=== PATIENT | female | born 1980 | race Caucasian/White ===

== ENCOUNTER 2016-12-16 10:13 | Emergency (ER) | payer MEDICAID ==
[2016-12-16 10:28] VITALS: BP 144/103
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
[2016-12-16] MEDS ORDERED: LORazepam 2 MG/ML MDV IVPUSH ONE (11:17)
[2016-12-16] MEDS ORDERED: Sodium Chloride 0.9% 10 ML Syringe FLUSH ONE (11:22)
[2016-12-16] MEDS ORDERED: Iopamidol 612 MG/ML 150 ML Bottle IVPUSH ONE (11:22)
[2016-12-16] MEDS: Sodium Chloride 0.9% 10 ML Syringe FLUSH PRN ×2 (11:34→12:41)
--- NOTE | 2016-12-16 13:45 | CT ---
CT abdomen and pelvis Technique: Multiple axial sections were obtained from above the dome of the diaphragm inferiorly through the pubic symphysis. Intravenous contrast was utilized. No oral contrast has been given. Comparison: No previous study. Findings: Visualized lung bases shows nothing acute. Bone window settings shows no lower rib fracture. Liver shows no focal parenchymal abnormality. Gallbladder shows no calcified gallstones. Spleen is within normal limits. Adrenal glands show no nodule. Kidneys show symmetric contrast enhancement. Small lower pole cyst is noted within the right kidney measuring approximately 6 mm. Kidneys are otherwise unremarkable. Pancreas is within normal limits. Aorta shows no aneurysmal dilatation. No retroperitoneal adenopathy or mesenteric abnormalities are seen. No pelvic mass or adenopathy is seen. No free fluid or inflammatory change is seen. Appendix is seen and appears normal. Delayed images shows contrast within the bladder. Impression: 1. Nothing acute is identified on CT study of the abdomen and pelvis. Incidental findings as noted above. Diagnostic code #2
[2016-12-16] MEDS ORDERED: Acetaminophen 325 MG Tab PO ONE (13:46)
--- NOTE | 2016-12-17 08:25 | CR ---
Left elbow: Four views of the left elbow were obtained. Comparison: No previous study. Joint spaces are maintained. No joint effusion is seen. No fracture or other abnormality is seen. Impression: 1. No abnormality is seen on four-view left elbow study. Diagnostic code #1
--- NOTE | 2016-12-17 08:50 | CR ---
Cervical spine: AP, lateral, swimmer's and odontoid views of the cervical spine were obtained. Comparison: No previous study. Vertebral body heights and disc spaces are maintained. Prevertebral soft tissues are normal. No fracture, dislocation or other bony abnormality is seen. Impression: 1. No abnormality is identified on four-view cervical spine study. Diagnostic code #1
== END 2016-12-16 14:34 | disposition home or self-care (01) ==
LOC: JD.ED 10:13
DX: S40.022A Contusion of left upper arm, initial encounter (principal); S40.021A Contusion of right upper arm, initial encounter; S40.812A Abrasion of left upper arm, initial encounter; S40.811A Abrasion of right upper arm, initial encounter; Z79.899 Other long term (current) drug therapy; Y04.0XXA Assault by unarmed brawl or fight, initial encounter
CPT/HCPCS: 36415; 72040; 73080; 74177; 80053; 81001; 84703; 85025; 87086; 96374; 99285; A9270; J2060; J7050; Q9967; 99284

== ENCOUNTER 2017-12-23 23:40 | Emergency (ER) | payer MEDICAID ==
[2017-12-23 23:45] VITALS: BP 128/87
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
--- NOTE | 2017-12-26 11:28 | CR ---
Right knee: Four views of the right knee were obtained. Comparison: Prior right knee exam of 04/04/17. Joint spaces are not seen well in profile but probable medial joint space narrowing is present. Lateral joint space is likely preserved. No joint effusion is seen. No acute fracture or other bony abnormality is identified. Impression: 1. Mild medial joint space narrowing. 2. Right knee exam is otherwise unremarkable. Diagnostic code #2
== END 2017-12-24 01:20 | disposition home or self-care (01) ==
LOC: JD.ED 23:40
DX: S83.91XA Sprain of unspecified site of right knee, initial encounter (principal); W19.XXXA Unspecified fall, initial encounter
CPT/HCPCS: 73564-26-RT; 73564-RT; 99283

== ENCOUNTER → 2021-03-05 | Day surgery (SDC) | payer MEDICAID ==
[~2021-03-05] MED LIST: Acetaminophen/HYDROcodone 325-5 MG Tab PO PRN; Bupivacaine 0.25% 10 ML SDV ONE; EPINEPHrine 1 MG/ML 30 ML MDV IRR SCH; Ketorolac 30 MG/ML SDV ONE; Lactated Ringers 1,000 ML IV SCH; Lidocaine 1% 4 ML ONE; Lidocaine 1%/Sod Bicarbonate in NS 8.4% 1 ML Syringe IDERM PRN; Midazolam 1 MG/ML 2 ML SDV ONE; Ondansetron 4 MG/2 ML SDV ONE; Propofol 200 MG/20 ML SDV ONE; Sodium Chloride 0.9% 10 ML Syringe FLUSH PRN; Triamcinolone Acetonide 40 MG/ML 1 ML SDV ONE; ceFAZolin 1 GM Vial ONE; fentaNYL 100 MCG/2 ML SDV IVPUSH PRN; fentaNYL 250 MCG/5 ML SDV ONE
--- NOTE | 2021-03-05 08:55 | PCM.PREANE ---
Preanesthetic Assessment - Procedure Proposed Procedure: right knee video arthrosocopy with chonddroplasty and steroid injection - Anesthesia/Transfusion/Family Hx Anesthesia History: Prior Anesthesia Without Reaction Other Type of Anesthesia Reaction Comment: no anesthesia reaction Family History of Anesthesia Reaction: No Transfusion History: No Prior Transfusion(s) Type of Transfusion Reactions: Reports: Unknown - Review of Systems General: No Symptoms Pulmonary: No Symptoms Cardiovascular: No Symptoms Gastrointestinal: No Symptoms Neurological: No Symptoms Other: Reports: Depression, Anxiety - Physical Assessment NPO Status Date: 03/04/21 NPO Status Time: 20:00 Vital Signs: 97% 147/98 80 18 Height: 5 ft 8 in Weight: 84 kg ASA Class: 2 Mental Status: Other (cognitive impairment- cnsent given by guardian over the phone) Airway Class: Mallampati = 2 Dentition: Reports: Broken Tooth/Teeth, Missing Tooth/Teeth, Caries Thyro-Mental Finger Breadths: 3 Mouth Opening Finger Breadths: 3 ROM/Head Extension: Full Lungs: Clear to Auscultation, Normal Respiratory Effort Cardiovascular: Regular Rate, Regular Rhythm - Lab Values: Laboratory Last Values Urine HCG, Qual Negative (NEGATIVE) 03/05/21 08:30 - Allergies Allergies/Adverse Reactions: Allergies Allergy/AdvReac Type Severity Reaction Status Date / Time ibuprofen Allergy NAUSEA/GI Verified 03/04/21 15:22 UPSET - Blood Blood Available: No - Acknowledgements Anesthesia Type Planned: General Anesthesia Pt an Appropriate Candidate for the Planned Anesthesia: Yes Alternatives and Risks of Anesthesia Discussed w Pt/Guardian: Yes Pt/Guardian Understands and Agrees with Anesthesia Plan: Yes PreAnesthesia Questionnaire HEENT History: Reports: Impaired Vision, Other (See Below) (cognitive impairment- has a guardian to sign for her) Cardiovascular History: Reports: None Respiratory History: Reports: Other (See Below) Other Respiratory History: COUGH, URI'S Musculoskeletal History: Reports: Other (See Below) Other Musculoskeletal History: CHRONIC PAIN, ANKLE ENTHESOPATHY Psychiatric History: Reports: Anxiety, Depression, Developmental Delay Endocrine/Metabolic History: Reports: Other (See Below) Other Endocrine/Metabolic History: GOITER Oncologic (Cancer) History: Reports: None - Past Surgical History HEENT Surgical History: Reports: Eye Surgery, Other (See Below) (lip) Musculoskeletal Surgical History: Reports: Arthroscopic Knee, Other (See Below) (left ankle bone spur) - SUBSTANCE USE Tobacco Use Status *Q: Never Tobacco User Tobacco Use Within Last Twelve Months: No Second Hand Smoke Exposure: No Days Per Week of Alcohol Use: 0 Recreational Drug Use History: No - HOME MEDS Home Medications: Home Meds Acetaminophen 1,000 mg PO Q6HR PRN 01/19/16 [History] Sertraline [Zoloft] 75 mg PO DAILY 01/19/16 [History] Aspirin [Aspirin EC] 325 mg PO BID #60 tab 03/05/21 [Rx] Hydrocodone/Acetaminophen [HYDROcodone-Acetaminophen 5-325 MG] 1 each PO Q6H PRN #8 tablet 03/05/21 [Rx] - CURRENT (IN HOUSE) MEDS Current Meds: Current Medications Lactated Ringer's (Ringers, Lactated) 1,000 mls @ 125 mls/hr IV ASDIRECTED SEBASTIEN Stop: 03/05/21 23:00 Lidocaine/Sodium Bicarbonate (Lidocaine 1%/Sod Bicarbonate In Ns 8.4% 1 Ml Syringe) 0.25 ml IDERM ONETIME PRN PRN Reason: Prior to IV Start Stop: 03/05/21 18:00 Sodium Chloride (Sodium Chloride 0.9% 10 Ml Syringe) 10 ml FLUSH ASDIRECTED PRN PRN Reason: Keep Vein Open Stop: 03/05/21 18:00
--- NOTE | 2021-03-05 11:00 | PCM.POSTAN ---
POST ANESTHESIA ASSESSMENT - MENTAL STATUS Mental Status: Alert, Oriented - VITAL SIGNS Vital Signs: Last Vital Signs Temp 36.7 C 03/05/21 08:50 Pulse 80 03/05/21 08:50 Resp 18 03/05/21 08:50 BP 147/98 H 03/05/21 08:50 Pulse Ox 97 03/05/21 08:50 - RESPIRATORY Respiratory Status: Respiratory Rate WNL, Airway Patent, O2 Saturation Stable, Supplemental Oxygen - CARDIOVASCULAR CV Status: Pulse Rate WNL, Blood Pressure Stable - GASTROINTESTINAL GI Status: No Symptoms - PAIN Pain Score: 0 - POST OP HYDRATION Hydration Status: Adequate & Stable - OBSERVATIONS Free Text/Narrative:: no anesthesia complications noted
--- NOTE | 2021-03-05 13:05 | PCM48HPAN ---
Post Anesthesia Note - EVALUATION WITHIN 48HRS OF ANESTHETIC Vital Signs in Normal Range: Yes Patient Participated in Evaluation: Yes Respiratory Function Stable: Yes Airway Patent: Yes Cardiovascular Function Stable: Yes Hydration Status Stable: Yes Pain Control Satisfactory: Yes Nausea and Vomiting Control Satisfactory: Yes Mental Status Recovered: Yes Vital Signs: Last Vital Signs Temp 36.6 C 03/05/21 11:15 Pulse 88 03/05/21 11:15 Resp 15 03/05/21 11:15 BP 134/87 03/05/21 11:15 Pulse Ox 97 03/05/21 11:15 - COMMENTS/OBSERVATIONS Free Text/Narrative:: no anesthesia complications noted
[2021-03-05 16:06] VITALS: BP 131/84; PULSE 85
--- NOTE | 2021-03-16 12:26 | PCM.OPNOTE ---
- General Post-Op/Procedure Note Date of Surgery/Procedure: 03/05/21 Operative Procedure(s): right knee video arthroscopy with chondroplasty of medial femoral condyle and patella with knee corticosteroid injection Pre Op Diagnosis: right knee chondromalacia Post-Op Diagnosis: Same Anesthesia Technique: General LMA, Local Primary Surgeon: Leno Ang Anesthesia Provider: Jose Orozco Singing Telegram Performer: Susan Yoder EBL in mLs: 5 Complications: None Condition: Good
--- NOTE | 2021-03-18 07:16 | OR ---
DATE OF OPERATION: 03/05/2021 SURGEON: Leno Ang MD OPERATION PERFORMED: Right knee video arthroscopy with chondroplasty of medial femoral condyle and patella with knee corticosteroid injection. PREOPERATIVE DIAGNOSIS: Right knee chondromalacia. POSTOPERATIVE DIAGNOSIS: Right knee chondromalacia. ANESTHESIA: General LMA with local. ANESTHESIA PROVIDER: Jose Orozco CRNA SCRAP BURNER: Susan Yoder PA-C ESTIMATED BLOOD LOSS: Less than 5 mL. COMPLICATIONS: None. CONDITION: Stable. DESCRIPTION OF PROCEDURE: The patient was identified in the preoperative holding area, proper site was marked, identified by the surgeon. The patient was taken back to the operative theater, where after adequate anesthesia, the patient's left lower extremity was placed in a well leg ryan. Right lower extremity had a nonsterile tourniquet applied and was placed in a C-clamp ryan. Foot of the bed was lowered. The right lower extremity was then sterilely prepped and draped in usual sterile fashion. OR time-out was performed. The patient received 2 g of IV Ancef. At this time, right lower extremity was exsanguinated and tourniquet was insufflated to 250 mmHg. Standard anterior lateral portal incision was made. Scope trocar was introduced. The patient was noted to have grade 2 chondromalacia with one small area of grade 3 chondromalacia of the patella as well as the trochlea. Attention was turned to the medial compartment. Anteromedial portal was created with the use of a spinal needle. The patient was noted to have grade 2 chondromalacia of the medial compartment, which was a small loose flap. At this time, a chondroplasty was performed of the medial femoral condyle. The patient was noted to have no meniscal tear. ACL was intact in the notch. Lateral compartment showed grade 2 chondromalacia changes, but no loose cartilaginous flaps. Chondroplasty was then performed to the patella. There were no other loose bodies. Excess saline was drained from the knee after making sure the spinal needle was placed intra-articularly. Excess saline was drained and then 2 mL of 40 mg Kenalog and 4 mL of 0.25% Marcaine were injected into the knee. 3-0 nylon was used for closure of the portal incisions. 0.25% Marcaine was used around the portal incisions. The patient had a sterile soft dressing applied and was sent to the PACU in stable condition. MMODAL /[id number]
== END | disposition home or self-care (01) ==
LOC: JD.SDS 08:40
PROVIDERS: ATTEND Orthopaedic Surgery
DX: M94.261 Chondromalacia, right knee (principal); E66.9 Obesity, unspecified; Z79.899 Other long term (current) drug therapy; Z88.8 Allergy status to other drugs, medicaments and biological substances
CPT/HCPCS: 20610; 29877; 81025; A9270; J0171; J0690; J1885; J2250; J2405; J2704; J3010; J3301; J3490; J7120; 01400

== ENCOUNTER 2024-02-06 12:10 | Emergency (ER) | payer MEDICAID ==
[2024-02-06 12:23] VITALS: BP 150/81; PULSE 88
[2024-02-06] MEDS: Ketorolac 0.5% Ophth Soln 5 ML Bottle EYELF ONE (13:18)
[2024-02-06] MEDS: Ciprofloxacin 0.3% Ophth Soln 5 ML Bottle EYELF ONE (13:19)
== END 2024-02-06 13:55 | disposition home or self-care (01) ==
LOC: JD.ED 12:10
DX: T15.02XA Foreign body in cornea, left eye, initial encounter (principal); Z79.82 Long term (current) use of aspirin; Z79.899 Other long term (current) drug therapy; Z88.8 Allergy status to other drugs, medicaments and biological substances; X58.XXXA Exposure to other specified factors, initial encounter
CPT/HCPCS: 65222; 99283; A9270